=== PATIENT | female | born 1970 | race Caucasian/White ===

== ENCOUNTER 2021-04-02 21:05 | Emergency (ER) | payer OTHER, SELFPAY ==
--- NOTE | ~2021-04-02 | XR_ITS ---
EXAMINATION: XR chest 1V portable DATE: 04/02/2021 22:22 INDICATION: COVID positive. Shortness of breath and cough. TECHNIQUE: frontal view of the chest was obtained. COMPARISON: Chest radiograph dated 06/07/2018 FINDINGS: The lungs remain clear with no focal airspace opacities, pulmonary edema, pleural effusion or pneumot horax. The cardiomediastinal silhouette is normal. Visualized bones and soft tissues are unremarkable . IMPRESSION: 1. No acute cardiopulmonary disease. Reviewed, dictated and finalized at location A.
[2021-04-02 21:05] VITALS: BP 136/81; PULSE 66; RESP 10; TEMP 36.6; O2SAT 95; O2SAT 97
--- NOTE | 2021-04-02 21:15 | ECG_ITS ---
Measurements Intervals [place] Rate: 63 P: 9 W[place]: 156 QRS: 3 QRSD: 91 T: 56 QT: 449 QTc: 463 Interpretive Statements SINUS RHYTHM LEFT VENTRICULAR HYPERTROPHY WITH ST-T CHANGE BORDERLINE ECG Electronically Signed On 04-03-2021 7:05:57 CDT by Yuriy Tam D.O.
[2021-04-02 22:16] LABS: Basophils Percent Auto 0.2 % (0.2-1.2); Eosinophils Absolute Auto 0.2 K/mm3 (0-0.3); Eosinophils Percent Auto 3.1 % (0-4.4); Hematocrit 43.2 % (37.0-47.0); Immature Granulocyte Absolute 0.06 K/mm3 (0.00-0.031); Lymphocytes Absolute Auto 2.18 K/mm3 (0.9-3.2); Mean Corpuscular HGB Conc 34.7 g/dl (32-36); Mean Corpuscular Hemoglobin 34.7 pg (26-34); Mean Platelet Volume 9.6 fl (7.4-10.4); Monocytes Absolute Auto 0.4 K/mm3 (0.1-0.6); Monocytes Percent Auto 6.3 % (2.6-8.5); Neutrophils Absolute Auto 2.9 K/mm3 (1.3-6.7); Neutrophils Percent Auto 51.4 % (45.5-73.1); Platelet Count Result 235 k/mm3 (150-375); Red Blood Count 4.32 M/mm3 (4.2-5.4); Red Cell Distribution Width 11.2 % (11.5-14.5); White Blood Count 5.7 K/mm3 (4.5-10.0)
[2021-04-02 22:25] LABS: Platelet Estimate Adequate (Adequate); Stomatocytes 1+ (NORMAL)
[2021-04-02 22:26] LABS: Atypical Lymphocytes Present
[2021-04-02 22:27] LABS: Alanine Aminotransferase 39 U/L (4-35); Albumin Level 4.2 g/dL (3.5-5.1); Alkaline Phosphatase 74 U/L (38-126); Anion Gap 10 mmol/L (8-16); Aspartate Amino Transferase 31 U/L (14-36); Bilirubin,Total 0.2 mg/dL (0.2-1.3); Blood Urea Nitrogen 11 mg/dL (7-17); Calcium 8.8 mg/dL (8.4-10.2); Carbon Dioxide 23 mmol/L (22-30); Chloride 104 mmol/L (98-107); Estimated CRCL calculation 88 ml/min; Estimated Glomerular Filt Rate > 60; Glucose 97 mg/dL (65-110); Potassium 3.9 mmol/L (3.4-5.0); Sodium 137 mmol/L (137-145)
[2021-04-02 22:46] LABS: D Dimer < 0.22 ug/mL (<0.48)
--- NOTE | 2021-04-02 23:22 | ED.SOB ---
HPI - SOB/Dyspnea General Chief Complaint: Shortness of Breath/Dyspnea Stated Complaint: SOB/ covid + Time Seen by Provider: 04/02/21 21:22 History of Present Illness HPI Narrative: Patient is a 51-year-old female who presents ER with shortness of breath. Patient was diagnosed with Covid 1 week ago. She reports she has a chronic cough from smoking but felt off and was tested and was subsequently positive. 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 She has been vaccinated. She denies any fevers but has been having chills and fatigue. She has frequent and persistent cough. No alleviating factors. She has not had any breathing treatments. She has tried Tessalon Perles and [id number] cough suppressant. Related Data Allergies Allergy/AdvReac Type Severity Reaction Status Date / Time Penicillins Allergy Unknown Unknown Verified 04/02/21 21:17 tiotropium Allergy Unknown Blister Verified 04/02/21 21:17 TIOTROPIUM BROMIDE Allergy Unknown Blister Uncoded 04/02/21 21:17 Review of Systems Review of Systems: All systems reviewed & are unremarkable except as noted in HPI and below Constitutional: Constitutional: Reports chills, Reports fatigue, Denies fever(s) and Reports weakness ENT: Reports nasal congestion and Denies sore throat Cardiovascular: Cardiovascular: Denies chest pain and Denies radiating jaw, neck or arm pain Respiratory: Respiratory: Denies chest congestion, Reports cough, Reports dyspnea and Denies wheezing Gastrointestinal: Gastrointestinal: Denies abdominal pain, Denies nausea and Denies vomiting PMFSH Past Medical History Medical History (Updated 04/02/21 @ 23:27 by Everette Lopez MD) Anxiety Asthma Depression History of left heart catheterization No deployment of stent History of myocardial infarction Hypertension Surgical History Surgical History (Updated 04/02/21 @ 23:25 by Everette Lopez MD) History of hysterectomy History of tonsillectomy Family History Family History (Updated 04/18/18 @ 13:59 by DOCTOR UNKNOWN) Sibling Patient's sister is in good health Father Family history of chronic obstructive pulmonary disease Mother Family history of lung cancer Social History Social History (Updated 04/02/21 @ 23:25 by Everette Lopez MD) Smoking status: Current every day smoker Alcohol intake: current Exam Narrative: GENERAL: Well-appearing, well-nourished, and in no acute distress. HEAD: Normocephalic, atraumatic. CHEST: Clear to auscultation. No respiratory distress. Frequent coughing. HEART: Regular rate and rhythm.. Normal peripheral pulses. ABDOMEN: Soft, nontender, nondistended. EXTREMITIES: Normal range of motion. No edema. SKIN: Warm, dry, no rash. NEURO: Alert and oriented x3. PSYCH: Normal mood and affect. Course Course Emergency Course: Patient informed of results. Will give a inhaler to the patient for home, may also have component of bronchitis related to viral infection so she will be placed on steroids.. No evidence of pneumonia on chest x-ray. No hypoxia in the ER. Vital Signs Vital signs: Vital Signs Temperature 97.8 F 04/02/21 21:05 Pulse Rate 66 04/02/21 21:05 Respiratory Rate 10 L 04/02/21 21:05 Blood Pressure 136/81 04/02/21 21:05 Pulse Oximetry 95 04/02/21 21:05 Temperature 97.8 F 04/02/21 21:05 Pulse Rate 66 04/02/21 21:05 Respiratory Rate 10 L 04/02/21 21:05 Blood Pressure 136/81 04/02/21 21:05 Pulse Oximetry 97 04/02/21 21:05 MDM - SOB/Dyspnea Lab Data Result diagrams: 04/02/21 22:09 04/02/21 22:09 Labs: Lab Results 04/02/21 04/02/21 04/02/21 Range/Units 22:09 22:09 22:09 WBC 5.7 (4.5-10.0) K/mm3 RBC 4.32 (4.2-5.4) M/mm3 Hgb 15.0 (12.0-15.0) g/dL Hct 43.2 (37.0-47.0) % MCV 100.0 (80-100) fl MCH 34.7 H (26-34) pg MCHC 34.7 (32-36) g/dl RDW 11.2 L (11.5-14.5) % Plt Count 235 (150-375) k/mm3 MPV
[2021-04-02 23:28] VITALS: BP 122/78; PULSE 63; RESP 22; O2SAT 96
[2021-04-02 23:42] VITALS: BP 118/76; PULSE 73; RESP 20; O2SAT 97
== END 2021-04-02 23:41 | disposition home or self-care (01) ==
PROVIDERS: Emergency Provider Emergency Medicine; PCP Internal Medicine Gastroenterology
DX: U07.1 COVID-19 (principal); J40 Bronchitis, not specified as acute or chronic; J45.909 Unspecified asthma, uncomplicated; I25.2 Old myocardial infarction; I10 Essential (primary) hypertension; F17.200 Nicotine dependence, unspecified, uncomplicated; I51.7 Cardiomegaly
CPT/HCPCS: 36415; 71045; 80053; 85025; 85380; 93005; 99283

== ENCOUNTER 2025-08-20 14:02 | Emergency (ER) | payer OTHER, SELFPAY ==
--- NOTE | ~2025-08-20 | XR_ITS ---
EXAMINATION: XR chest 2V, 08/20/2025 15:53 FACTORY CLERK HISTORY: sob COMPARISON: No comparisons available. Technique: 2 views obtained. Findings: The lungs are clear, no effusion. No pneumothorax. Heart is normal size. Mediastinal and hilar contours are within normal limits. Bony thorax no acute abnormality. Impression: No acute cardiopulmonary abnormality. Reviewed, dictated and finalized at location P. ORY CLERK Impression: No acute cardiopulmonary abnormality.
[2025-08-20 14:06] VITALS: BP 187/102; PULSE 94; RESP 20; TEMP 36.4; O2SAT 98
--- OUTSIDE RECORDS SUMMARY | 2025-08-20 15:03 | XMS_ITS | Continuity of Care Document ---
Author Name Christianne Ng Address [address] [place] [address] Organization Unknown Address [address] [place] [address] Medications No known medications Problems No known problems
--- OUTSIDE RECORDS SUMMARY | 2025-08-20 15:03 | XMS_ITS | Clinical Summary ---
Author Organization [facility] Address [address] [place] [address] Care Team Providers Care Special Projects Manager Name Role Phone Unavailable Primary Care Provider Unavailabl e Source Comments [facility],non-owned Affiliates and Associated Physician Practices is amultiple site organization consisting of ambulatory clinics and hospital sitesin [place], [place], [place] and [place]. This disclosure is being madepursuant to the Care Everywhere program and may not contain all information available regarding this patient. Last updated 18.[facility] [employer] Allergies Active Allergy Reactions Criticality Noted Date Comments Hydrocodone Psychiatric Medium 11/29/2023 Penicillins Urticaria,Shortness of Breath High 07/16 Spiriva Unknown 10/23/2023 Medications * Be aware that medications may not be up to date on this document. Alwaysverify current medications with the patient. topiramate (Topamax) 50 MG tablet Take 1 (one) tablet by mouth at bedtime Active buPROPion SR 12hr (Wellbutrin-SR) 150 MG tablet Take 1 (one) tablet by mouth 2 times daily Active aspirin (Aspirin) 81 MG chew tablet Take 1 (one) tablet by mouth once daily 100 tablet 3 4 Active atorvastatin (Lipitor) 40 MG tablet Take 1 (one) tablet by mouth at bedtime 30 tablet 3 4 Active amLODIPine (Norvasc) 10 MG tabletIndications :Primary hypertension Take 1 (one) tablet by mouth once daily 90 tablet 4 4 Active Active Problems Problem Noted Date Diagnosed Date Facial droop 10/23/2023 Cerebrovascular accident (CVA), unspecified mech anism 10/23/2023 Right sided weakness 10/23/2023 HTN (hypertension) 10/23/2023 Nicotine dependence 10/23/2023 Migraine without aura and wi thout status migrainosus, not intractable 10/23/2023 Encounters Date Type Department Care Team Description 06/15/2025 Refill [facility] - Neurology [address] [place] [address] Zaira Martin PA-C MEDICATION REFILL from Last 3 Months Social History Tobacco Use Types Packs/Day Years Used Date Smoking Tobacco: Every Day Cigarettes Smokeless Tobacco: Never AUDIT-C Answer Date Recorded Q1: How often do you have a drink containing alcohol? 4 or more times a week 10/23/2023 Q2: How many drinks containi ng alcohol do you have on a typical day when you are drinking? 3 or 4 Q3: How often do you have si x or more drinks on one occasion? Less than monthly 10/23/2023 Overall Financial Resource Strain (CARDIA) Answe r Date Recorded How hard is it for you to pa y for the very basics like food, housing, medical care, and heating? Not hard at all 10/23/2023 PHQ-2 Answer Date Recorded Patient Health Questionnaire-2 Score 0 10/24/2023 [facility] Occupat [facility] - Occupational Stress Questionnaire Answer Date Recorded Do you feel stress - tense, restless, nervous, or anxious, or unable to sleep at night because your mind is troubled all the time - these days? Not at all 10/23/2023 Hunger Vital Sign Answer Date Recorded Within the past 12 months, y ou worried that your food would run out before you got the money to buy more. Never true 10/23/19 24 Within the past 12 months, t he food you bought just didn't last and you didn't have money to get more. Never true 10/23/2023 PRAPARE - Transportation Answer Date Re corded In the past 12 months, has l ack of transportation kept you from medical appointments or from getting medications? No 10/05 In the past 12 months, has l ack of transportation kept you from meetings, work, or from getting things needed for daily living? No 10/23/2023 Housing Stability Vital Sign Answer Renny e Recorded In the last 12 months, was t here a time when you were not able to pay the mortgage or rent on time? No 10/23/2023 In the last 12 months, how many places have you lived? 1 10/23/2023 In the last 12 months, was t here a time when you did not have a steady place to sleep or slept in a snf (including now)? 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 Gender Identity Not on file Sexual Orientation Not on file Last Filed Vital Signs Vital Sign Reading Time Taken Comments Blood Pressure 143/83 11/29/2023 10:47 AM CDT Pulse 65 11/29/2023 10:47 AM CDT Temperature 36.3 C (97.4 F) 10/24/2023 12:00 PM SANDWICH MACHINE OPERATOR Respiratory Rate 14 11/29/2023 10:47 AM CDT Oxygen Saturation 97% 10/24/2023 11:45 AM SANDWICH MACHINE OPERATOR Inhaled Oxygen Concentration - - Weight 85.7 kg (189 lb) 11/29/2023 10:47 AM CDT Height 167.6 cm (5' 6) 10/23/2023 7:00 AM SANDWICH MACHINE OPERATOR Body Mass Index 30.51 10/23/2023 7:00 AM SANDWICH MACHINE OPERATOR Plan of Treatment Health Maintenance Due Date Last Done Comments COLOGUARD (AGES 45-75) - COLON CA SCREENING 1970 COLON MONITORING 1970 COLONOSCOPY - COLON CA SCREENING 1970 CT COLONOGRAPHY - COLON CA SCREENING 1970 Colorectal Cancer Screening 1970 FIT - COLON CA SCREENING 1970 FLEX SIG - COLON CA SCREENING 1970 MAMMOGRAM 1970 HIV SCREENING 1985 HEPATITIS C SCREENING 02/03/1988 DTAP/TDAP/TD VACCINES (1 - Tdap) 1989 HEPATITIS B VACCINE (1 of 3 - 19+ 3-dose series) 1989 PNEUMOCOCCAL VACCINE 50+ (1 of 2 - PCV) 1989 PAP SMEAR 1991 ZOSTER VACCINE (1 of 2) 02/08/2020 DEPRESSION SCREENING 09/03/2024 11/29/2023 COVID-19 VACCINE ( - season) 2025 10/21/2021, 10/15/2020, 09/24/2020 INFLUENZA VACCINE (#1) 2025 06/18/2020 SCREENING FOR DIABETES 10/24/2026 , 10/23/2023, 10/23/2023, Additional history exists HIB VACCINE Aged Out No longer eligi ble based on patient's age to complete this topic HPV VACCINE Aged Out No longer eligi ble based on patient's age to complete this topic MENINGOCOCCAL (Group B) VACCINE SHARED DECISION-MAKING Aged Out No longer eligible based on patient's age to complete this topic MENINGOCOCCAL GROUPS A/C/Y/W VACCINE Aged Out No longer eligible based on patient's age to complete this topic Procedures Procedure Name Priority Date/Time Associated Diagnosis Comments COMPREHENSIVE METABOLIC PANEL Routine 10/24/2023 12:28 AM SANDWICH MACHINE OPERATOR from Last 3 Months or Most Recently Relevant to Health Maintenance Results * (ABNORMAL) COMPREHENSIVE METABOLIC PANEL (10/24/2023 12:28 AM SANDWICH MACHINE OPERATOR) BUN 17 7 - 26 mg/dL 10/24/2023 1:09 AM [facility] Creatinine 0.91 0.56 - 0.96 mg/dL 10/24/2023 1:09 AM [facility] Sodium 138 136 - 145 mmol/L 10/24/2023 1:09 AM [facility] Potassium 3.4(L) 3.5 - 4.5 mmol/L 10/24/2023 1:09 AM [facility] Chloride 108(H) 98 - 107 mmol/L 10/24/2023 1:09 AM [facility] CO2 22 22 - 29 mmol/L 10/24/2023 1:09 AM [facility] Glucose 96 70 - 115 mg/dL 10/24/2023 1:09 AM [facility] Calcium 9.1 8.4 - 10.2 mg/dL 10/24/2023 1:09 AM [facility] Protein Total 6.4 6.0 - 8.3 g/dL 10/24/2023 1:09 AM [facility] Albumin 3.6 3.4 - 5.0 g/dL 10/24/2023 1:09 AM [facility] Bilirubin Total 0.3 0.2 - 1.2 mg/dL 10/24/2023 1:09 AM [facility] Alkaline Phosphatase 86 40 - 150 U/L 10/24/2023 1:09 AM [facility] ALT 19 5 - 55 U/L 10/24/2023 1:09 AM [facility] AST 16 5 - 34 U/L 10/24/2023 1:09 AM [facility] Anion Gap 8 6 - 16 10/24/2023 1:09 AM [facility] BUN/Creatinine Ratio 19 7 - 23 10/24/2023 1:09 AM [facility] Osmolality Calculated 287 275 - 295 mOsm/kg 10/24/2023 1:09 AM [facility] Albumin/Globulin Ratio 1.3 1.1 - 2.3 10/24/2023 1:09 AM [facility] eGFR by CKD-EPI 75(L) >=90 mL/min/1.7 3 m2 10/24/2023 1:09 AM [facility] Blood BLOOD SPECIMEN / Unknown Venipuncture / Unknown 10/24/2023 12:28 AM SANDWICH MACHINE OPERATOR 10/24/2023 12:40 AM [facility] Sung Mckeon MD LAB - CHEMISTRY ORDERABLES nal Result Performing Organization Address [facility]/State/ZIP Co de Phone Number [facility] [address] [place] [address], [facility] [phone] from Last 3 Months or Most Recently Relevant to Health Maintenance Insurance INDIVIDUAL EXCHANGE BENEFIT PLAN Advance Directives * Full Code (Latest Code Status on File) Date Activated Date Inactivated Comments 10/23/2023 1:19 AM 10/24/2023 5:34 PM
--- OUTSIDE RECORDS SUMMARY | 2025-08-20 15:03 | XMS_ITS | Continuity of Care Document ---
Author Name Christianne Ng Address [address] [place] [address] Organization Unknown Address [address] [place] [address] Problems No known problems
--- OUTSIDE RECORDS SUMMARY | 2025-08-20 15:03 | XMS_ITS | Clinical Summary ---
Author Organization [facility] [address] Address [address] [place] [address] Care Team Providers Care Conference Planner Name Role Phone Sumanth Smith MD Primary Care Provider Allergies Active Allergy Reactions Criticality Noted Date Comments Penicillins Hives,Shortness of breath High 7 Tiotropium [place] Blisters High 07/16/2017 Medications furosemide (LASIX) 20 mg tablet Take 20 mg by mouth daily. Active aspirin 81 mg tablet Take 81 mg by mouth daily. Active atorvastatin (LIPITOR) 40 mg tablet Take 40 mg by mouth daily. Active nitroglycerin (NITROSTAT) 0.[address] 0.4 mg under the tongue every 5 (five) minutes as needed for chest pain. Active Active Problems No known active problems Surgical History Surgery Date Site/Laterality Comments SECTION TONSILECTOMY, ADENOIDECTOMY, BILATERAL MYRINGOTOMY AND TUBES HYSTERECTOMY Medical History Medical History Date Comments Hypertension Aortic valve disorder Non-ST elevation (NSTEMI) myocardial infarction (HCC) Anxiety Depression Family History Medical History Relation Name Comments No Known Problems Sister Relation Name Status Comments Father Alive Mother (Age 64) Sister Alive Social History Tobacco Use Types Packs/Day Years Used Date Smoking Tobacco: Every Day Cigarettes Smokeless Tobacco: Never Alcohol Use Standard Drinks/Week Comments Yes 8 (1 standard drink = 0.6 oz pur e alcohol) Personal Safety Answer Date Recorded Getting School Help Needed Not on file 11/16 Comments Unknown Sex and Gender Information Value Date Recorded Sex Assigned at Not on file Legal Sex Female 12:22 AM UNIT MANAGER RN Gender Identity Not on file Sexual Orientation Not on file Last Filed Vital Signs Vital Sign Reading Time Taken Comments Blood Pressure 144/88 07/16/2017 3:47 PM UNIT MANAGER RN Pulse 78 07/16/2017 3:47 PM UNIT MANAGER RN Temperature 36.8 C (98.2 F) 07/26/2014 11:32 AM UNIT MANAGER RN Respiratory Rate - - Oxygen Saturation 97% 07/16/2017 3:47 PM UNIT MANAGER RN Inhaled Oxygen Concentration - - Weight 88.9 kg (196 lb) 07/16/2017 3:47 PM UNIT MANAGER RN Height 167.6 cm (5' 6) 07/16/2017 3:47 PM UNIT MANAGER RN Body Mass Index 31.64 07/16/2017 3:47 PM UNIT MANAGER RN Plan of Treatment Not on file Insurance COUNT INCLUDES THE [facility] HEALTHCARE INCLUDES THE [facility] HMO/PPO Address: [facility] [address] [place] [address] Care Teams Conference Planner Relationship Specialty Start Date End Date Sumanth Smith MD PCP - General Internal Medicine 07/04/17
--- NOTE | 2025-08-20 15:49 | ED_ITS ---
HPI - URI/Sore Throat General Chief Complaint: Upper Respiratory Infection <Steph Murphy PA-C - Last Filed: 08/21/25 17:03> Stated Complaint: cough <Steph Murphy PA-C - Last Filed: 08/21/25 17:03> Time Seen by Provider: 08/20/25 15:49 <Steph Murphy PA-C - Last Filed: 08/21/25 17:03> Focused HPI: This is a 55 year old female that presents to the ER for cough. Ongoing over the last 3 days. Reports associated loss of voice. Reports she has had some vomiting. Her blood pressure is elevated. She has not taken her blood pressure medication because she is out. She takes Amlodipine 10mg. Reports fevers, shortness of breath. GENERAL: Well-appearing, well-nourished, and in no acute distress. HEAD: Normocephalic, atraumatic. CHEST: Clear to auscultation. ?No respiratory distress. HEART: Regular rate and rhythm.? NEURO: ?Alert and oriented x3. Patient screened in triage and initial orders placed.? ?Additional care and disposition to be based upon?diagnostic testing and treatment. <Steph Murphy PA-C - Last Filed: 08/21/25 17:03> History of Present Illness HPI Narrative: Agree with HPI. Does note rectal pain that has been becoming more frequent between her cycles. Patient is a . <Moises Martin DO - Last Filed: 08/20/25 18:49> Related Data Allergies/Adverse Reactions: Allergies Allergy/AdvReac Type Severity Reaction Status Date / Time Penicillins Allergy Unknown Unknown Verified 01/27/22 13:13 tiotropium Allergy Unknown Blister Verified 01/27/22 13:13 TIOTROPIUM BROMIDE Allergy Unknown Blister Uncoded 01/27/22 13:13 <Steph Murphy PA-C - Last Filed: 08/21/25 17:03> Review of Systems 2 Review of Systems: All systems reviewed & are unremarkable except as noted in HPI and below <Steph Murphy PA-C - Last Filed: 08/21/25 17:03> PMFSH Past Medical History Medical History: Medical History (Updated 12/19/25 @ 00:00 by Jim Frank) Anxiety Depression Asthma Hypertension History of left heart catheterization No deployment of stent History of myocardial infarction <Steph Murphy PA-C - Last Filed: 08/21/25 17:03> Surgical History Surgical History: Surgical History (System 01/27/22 @ 13:13 by Madiha Alexander) History of hysterectomy History of tonsillectomy <SAMINA Johnson Last Filed: 08/21/25 17:03> Family History Family History: Family History (System 01/27/22 @ 13:13 by Madiha Alexander) Sibling Patient's sister is in good health Father Family history of chronic obstructive pulmonary disease Mother Family history of lung cancer <SAMINA Johnson Last Filed: 08/21/25 17:03> Social History Social History: Social History (System 01/27/22 @ 13:13 by Madiha Alexander) Smoking status: Current every day smoker Alcohol intake: current <SAMINA Johnson Last Filed: 08/21/25 17:03> Course Vital Signs Vital signs: Vital Signs Temperature 97.6 F 08/20/25 14:06 Pulse Rate 94 08/20/25 14:06 Respiratory Rate 20 08/20/25 14:06 Blood Pressure 187/102 H 08/20/25 14:06 Pulse Oximetry 98 08/20/25 14:06 Temperature 97.6 F 08/20/25 14:06 Pulse Rate 88 08/20/25 18:20 Respiratory Rate 16 08/20/25 18:20 Blood Pressure 185/108 H 08/20/25 18:20 Pulse Oximetry 98 08/20/25 18:20 Oxygen Delivery Room Air 08/20/25 17:00 <SAMINA Johnson Last Filed: 08/21/25 17:03> Vital Signs Temperature 97.6 F 08/20/25 14:06 Pulse Rate 94 08/20/25 14:06 Respiratory Rate 20 08/20/25 14:06 Blood Pressure 187/102 H 08/20/25 14:06 Pulse Oximetry 98 08/20/25 14:06 Temperature 97.6 F 08/20/25 14:06 Pulse Rate 88 08/20/25 18:20 Respiratory Rate 16 08/20/25 18:20 Blood Pressure 185/108 H 08/20/25 18:20 Pulse Oximetry 98 08/20/25 18:20 Oxygen Delivery Room Air 08/20/25 17:00 <Moises Martin DO - Last Filed: 08/20/25 18:49> [facility] Narrative Medical decision making narrative: 55-year-old female Presenting for cough. On initial evaluation patient was in no acute distress afebrile, hemodynamic stable. Differentials include but are not limited to: Viral syndrome, strep pharyngitis, viral pharyngitis, sinusitis, laryngitis, SECURITY SITE SUPERVISOR, RPA Notable exam findings: Heart and lungs clear, breathy voice I personally reviewed the patient's lab result. Notable lab findings: Leukocytosis at 12.2. CMP without significant abnormalities. COVID/flu/RSV negative. I personally reviewed the patient's images and interpret as follows: Chest x- ray: Normal cardiac silhouette, no consolidations, no pleural effusions, no pulmonary vascular congestion Patient was given DuoNeb but she did have significant cough causing her some mild shortness of breath. She remained saturating in the high 90s on room air she did have some mild improvement of her symptoms after that. She will be given a prescription for a Medrol Dosepak, albuterol inhaler, and Tessalon Perles. She was advised follow-up with her PCP in the next week for re- evaluation. Patient was agreeable to this plan. Given strict return precautions. Of note, patient does have a history of hypertension and has not been taking her amlodipine as prescribed. She had no chest pain or changes in vision. <Moises Martin DO - Last Filed: 08/20/25 18:49> Differential Diagnosis Differential Diagnosis: Viral syndrome, strep pharyngitis, viral pharyngitis, sinusitis, laryngitis, SECURITY SITE SUPERVISOR, RPA <Moises Martin DO - Last Filed: 08/20/25 18:49> Lab Data Result diagrams: 08/20/25 16:11 08/20/25 16:11 <Steph Murphy PA-C - Last Filed: 08/21/25 17:03> Labs: Lab Results 08/20/25 Range/Units 16:11 WBC 12.2 H (4.5-10.0) K/mm3 RBC 4.37 (4.2-5.4) M/mm3 Hgb 15.6 H (12.0-15.0) g/dL Hct 44.4 (37.0-47.0) % MCV 101.6 H (80-100) fl MCH 35.7 H (26-34) pg MCHC 35.1 (32-36) g/dl RDW 11.9 (11.5-14.5) % Plt Count 321 (150-375) k/mm3 MPV 9.6 (7.4-10.4) fl Immature Gran % (Auto) 0.5 (0-0.5) % Neut % (Auto) 71.6 (45.5-73.1) % Lymph % (Auto) 19.4 (18.3-44.2) % Holt % (Auto) 7.4 (2.6-8.5) % Eos % (Auto) 0.7 (0-4.4) % Baso % (Auto) 0.4 (0.2-1.2) % Lymph # (Auto) 2.37 (0.9-3.2) K/mm3 Holt # (Auto) 0.9 H (0.1-0.6) K/mm3 Eos # (Auto) 0.1 (0-0.3) K/mm3 Baso # (Auto) 0.1 (0.0-0.1) K/mm3 Abs Immat Gran (auto) 0.06 H (0.00-0.031) K/mm3 Absolute Neuts (auto) 8.7 H (1.3-6.7) K/mm3 Absolute Nucleated RBC 0.000 (0.0-0.012) K/mm3 Nucleated RBC % 0.0 (0.0-0.2) % PT 12.9 (11.1-14.7) Seconds INR 1.0 APTT 27.2 (22.3-36.8) Seconds Sodium 138 (137-145) mmol/L Potassium 4.0 (3.4-5.0) mmol/L Chloride 104 (98-107) mmol/L Carbon Dioxide 25 (22-30) mmol/L Anion Gap 9 (4-12) mmol/L BUN 12 (7-17) mg/dL Creatinine 0.85 (0.7-1.0) mg/dL Estim Creat Clear Calc 75 ml/min Estimated GFR > 60 (59 - ) Glucose 103 (65-110) mg/dL Calcium 9.5 (8.4-10.2) mg/dL Total Bilirubin 0.6 (0.2-1.3) mg/dL AST 41 H (14-36) U/L ALT 49 H (6-35) U/L Alkaline Phosphatase 124 (38-126) U/L Total Protein 8.1 (6.3-8.2) g/dL Albumin 4.6 (3.5-5.1) g/dL Influenza A (RT-PCR) Negative (Negative) Influenza B (RT-PCR) Negative (Negative) RSV (RT-PCR) Negative (Negative) SARS-CoV-2 RNA (RT-PCR) Negative (Negative) <Steph Murphy PA-C - Last Filed: 08/21/25 17:03> Lab Results 08/20/25 Range/Units 16:11 WBC 12.2 H (4.5-10.0) K/mm3 RBC 4.37 (4.2-5.4) M/mm3 Hgb 15.6 H (12.0-15.0) g/dL Hct 44.4 (37.0-47.0) % MCV 101.6 H (80-100) fl MCH 35.7 H (26-34) pg MCHC 35.1 (32-36) g/dl RDW 11.9 (11.5-14.5) % Plt Count 321 (150-375) k/mm3 MPV 9.6 (7.4-10.4) fl Immature Gran % (Auto) 0.5 (0-0.5) % Neut % (Auto) 71.6 (45.5-73.1) % Lymph % (Auto) 19.4 (18.3-44.2) % Holt % (Auto) 7.4 (2.6-8.5) % Eos % (Auto) 0.7 (0-4.4) % Baso % (Auto) 0.4 (0.2-1.2) % Lymph # (Auto) 2.37 (0.9-3.2) K/mm3 Holt # (Auto) 0.9 H (0.1-0.6) K/mm3 Eos # (Auto) 0.1 (0-0.3) K/mm3 Baso # (Auto) 0.1 (0.0-0.1) K/mm3 Abs Immat Gran (auto) 0.06 H (0.00-0.031) K/mm3 Absolute Neuts (auto) 8.7 H (1.3-6.7) K/mm3 Absolute Nucleated RBC 0.000 (0.0-0.012) K/mm3 Nucleated RBC % 0.0 (0.0-0.2) % PT 12.9 (11.1-14.7) Seconds INR 1.0 APTT 27.2 (22.3-36.8) Seconds Sodium 138 (137-145) mmol/L Potassium 4.0 (3.4-5.0) mmol/L Chloride 104 (98-107) mmol/L Carbon Dioxide 25 (22-30) mmol/L Anion Gap 9 (4-12) mmol/L BUN 12 (7-17) mg/dL Creatinine 0.85 (0.7-1.0) mg/dL Estim Creat Clear Calc 75 ml/min Estimated GFR > 60 (59 - ) Glucose 103 (65-110) mg/dL Calcium 9.5 (8.4-10.2) mg/dL Total Bilirubin 0.6 (0.2-1.3) mg/dL AST 41 H (14-36) U/L ALT 49 H (6-35) U/L Alkaline Phosphatase 124 (38-126) U/L Total Protein 8.1 (6.3-8.2) g/dL Albumin 4.6 (3.5-5.1) g/dL Influenza A (RT-PCR) Negative (Negative) Influenza B (RT-PCR) Negative (Negative) RSV (RT-PCR) Negative (Negative) SARS-CoV-2 RNA (RT-PCR) Negative (Negative) <Moises Martin DO - Last Filed: 08/20/25 18:49> Imaging Data Radiologist's impression: ITS Impressions Chest X-Ray 08/20/25 15:59 Impression: No acute cardiopulmonary abnormality. <Steph Murphy PA-C - Last Filed: 08/21/25 17:03> ITS Impressions Chest X-Ray 08/20/25 15:59 Impression: No acute cardiopulmonary abnormality. <Moises Martin DO - Last Filed: 08/20/25 18:49> Critical Care Time Critical Care Time Critical Care Time: No <Steph Murphy PA-C - Last Filed: 08/21/25 17:03> Discharge Plan Discharge Clinical Impression: Bronchitis <Steph Murphy PA-C - Last Filed: 08/21/25 17:03> Patient Disposition: Home <SAMINA Johnson Last Filed: 08/21/25 17:03> Condition: Stable <SAMINA Johnson Last Filed: 08/21/25 17:03> Instructions: Antibiotic Form, Acute Bronchitis (ED) <SAMINA Johnson Last Filed: 08/21/25 17:03> Additional Instructions: You likely have an acute bronchitis. Take albuterol, Tessalon Perles, Medrol Dosepak as prescribed. Follow-up with her PCP in the next week for re- evaluation. Return to the ED for any new or worsening symptoms. <Steph Murphy PA-C - Last Filed: 08/21/25 17:03> Patient Language: Latvian <SAMINA Johnson Last Filed: 08/21/25 17:03> Prescriptions: New albuterol sulfate 90 mcg/actuation aerosol powdr breath activated 2 inh inhalation Q6H PRN (Reason: wheezing) Qty: 1 0RF methylprednisolone [Medrol (Ken)] 4 mg tablets,dose pack See Rx Instructions .ROUTE .COMPLEX Qty: 21 0RF Rx Instructions: for 6 days benzonatate 200 mg capsule 200 mg PO TID PRN (Reason: cough) Qty: 21 0RF No Action prednisone 50 mg tablet 50 mg PO DAILY Qty: 7 0RF albuterol sulfate 90 mcg/actuation HFA aerosol inhaler 4 puff INHALATION QID PRN (Reason: shortness of breath or wheezing) Qty: 8 0RF <SAMINA Johnson Last Filed: 08/21/25 17:03> Follow-up/Referrals: PHYSICIAN NOT ON STAFF,NONSTAFF [Primary Care Provider] <Steph Murphy PA-C - Last Filed: 08/21/25 17:03> Stand Alone Forms: Work/School Release IP <Steph Murphy PA-C - Last Filed: 08/21/25 17:03>
[2025-08-20 16:11] VITALS: BP 145/106; PULSE 87; RESP 16; O2SAT 97
[2025-08-20 16:21] LABS: Hematocrit 44.4 % (37.0-47.0); Hemoglobin 15.6 g/dL (12.0-15.0); Immature Granulocyte Percent A 0.5 % (0-0.5); Lymphocytes Absolute Auto 2.37 K/mm3 (0.9-3.2); Mean Corpuscular HGB Conc 35.1 g/dl (32-36); Mean Corpuscular Hemoglobin 35.7 pg (26-34); Mean Corpuscular Volume 101.6 fl (80-100); Nucleated Red Blood Cells Absolute Auto 0.000 K/mm3 (0.0-0.012); Nucleated Red Blood Cells Perc 0.0 % (0.0-0.2); Platelet Count Result 321 k/mm3 (150-375); Red Blood Count 4.37 M/mm3 (4.2-5.4); White Blood Count 12.2 K/mm3 (4.5-10.0)
[2025-08-20 16:30] LABS: Alanine Aminotransferase 49 U/L (6-35); Albumin Level 4.6 g/dL (3.5-5.1); Alkaline Phosphatase 124 U/L (38-126); Anion Gap 9 mmol/L (4-12); Aspartate Amino Transferase 41 U/L (14-36); Bilirubin,Total 0.6 mg/dL (0.2-1.3); Blood Urea Nitrogen 12 mg/dL (7-17); Calcium 9.5 mg/dL (8.4-10.2); Carbon Dioxide 25 mmol/L (22-30); Chloride 104 mmol/L (98-107); Estimated CRCL calculation 75 ml/min; Estimated Glomerular Filt Rate > 60; Glucose 103 mg/dL (65-110); Potassium 4.0 mmol/L (3.4-5.0); Sodium 138 mmol/L (137-145); Total Protein 8.1 g/dL (6.3-8.2)
[2025-08-20 16:31] LABS: INR 1.0; Prothrombin Time 12.9 Seconds (11.1-14.7)
[2025-08-20 16:32] LABS: Partial Thromboplastin Time 27.2 Seconds (22.3-36.8)
--- OUTSIDE RECORDS SUMMARY | 2025-08-20 16:47 | XMS_ITS | Clinical Summary ---
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 Gender Identity Not on file Sexual Orientation Not on file Last Filed Vital Signs Vital Sign Reading Time Taken Comments Blood Pressure 144/88 07/16/2017 3:47 PM PIPE ORGAN BUILDER Pulse 78 07/16/2017 3:47 PM PIPE ORGAN BUILDER Temperature 36.8 C (98.2 F) 07/26/2014 11:32 AM PIPE ORGAN BUILDER Respiratory Rate - - Oxygen Saturation 97% 07/16/2017 3:47 PM PIPE ORGAN BUILDER Inhaled Oxygen Concentration - - Weight 88.9 kg (196 lb) 07/16/2017 3:47 PM PIPE ORGAN BUILDER Height 167.6 cm (5' 6) 07/16/2017 3:47 PM PIPE ORGAN BUILDER Body Mass Index 31.64 07/16/2017 3:47 PM PIPE ORGAN BUILDER Plan of Treatment Not on file Insurance [facility] Care Teams Biofuels Production Associate Relationship Specialty Start Date End Date Sumanth Smith MD PCP - General Internal Medicine 07/04/17
--- OUTSIDE RECORDS SUMMARY | 2025-08-20 16:47 | XMS_ITS | Clinical Summary ---
Author Organization [facility] Address [address] [place] [address] Care Team Providers Care General Internal Medicine Doctor Name Role Phone Unavailable Primary Care Provider Unavailabl e Source Comments [facility],non-owned Affiliates and Associated Physician Practices is amultiple site organization consisting of ambulatory clinics and hospital sitesin [place], [place], [place] and [place]. This disclosure is being madepursuant to the Care Everywhere program and may not contain all information available regarding this patient. Last updated 18.[facility] Allergies Active Allergy Reactions Criticality Noted Date [...] Refill [facility] - [facility] [address] [place] [address] Zaira Martin PA-C MEDICATION REFILL from Last [...] Recorded Patient Health Questionnaire-2 Score 0 10/24/2023 [facility] Occupat ional Health - Occupational Stress [...] place to sleep or slept in a fdc (including now)? No 10/23/2023 Comments No Sex and Gender Information Value Date Recorded Sex Assigned at Not on file Legal Sex Female 6:00 AM COMMERCIAL FLOOR COVERING INSTALLER Gender Identity Not on file Sexual Orientation Not on file Last Filed Vital Signs Vital Sign Reading Time Taken Comments Blood Pressure 143/83 11/29/2023 10:47 AM CDT Pulse 65 11/29/2023 10:47 AM CDT Temperature 36.3 C (97.4 F) 10/24/2023 12:00 PM COMMERCIAL FLOOR COVERING INSTALLER Respiratory Rate 14 11/29/2023 10:47 AM CDT Oxygen Saturation 97% 10/24/2023 11:45 AM COMMERCIAL FLOOR COVERING INSTALLER Inhaled Oxygen Concentration - - Weight 85.7 kg (189 lb) 11/29/2023 10:47 AM CDT Height 167.6 cm (5' 6) 10/23/2023 7:00 AM COMMERCIAL FLOOR COVERING INSTALLER Body Mass Index 30.51 10/23/2023 7:00 AM COMMERCIAL FLOOR COVERING INSTALLER Plan of Treatment Health Maintenance Due Date [...] COMPREHENSIVE METABOLIC PANEL Routine 10/24/2023 12:28 AM COMMERCIAL FLOOR COVERING INSTALLER from Last 3 Months or Most Recently Relevant to Health Maintenance Results * (ABNORMAL) COMPREHENSIVE METABOLIC PANEL (10/24/2023 12:28 AM COMMERCIAL FLOOR COVERING INSTALLER) BUN 17 7 - 26 mg/dL 10/24/2023 1:09 AM [facility] Creatinine 0.91 0.56 - 0.96 mg/dL 10/24/2023 1:09 AM [facility] Sodium 138 136 - 145 mmol/L 10/24/2023 1:09 AM [facility] Potassium 3.4(L) 3.5 - 4.5 mmol/L 10/24/2023 1:09 AM [facility] Chloride 108(H) 98 - 107 mmol/L 10/24/2023 1:09 AM [facility] CO2 22 22 - 29 mmol/L 10/24/2023 1:09 AM [facility] Glucose 96 70 - 115 mg/dL 10/24/2023 1:09 AM [facility] Calcium 9.1 8.4 - 10.2 mg/dL 10/24/2023 1:09 AM [facility] Protein Total 6.4 6.0 - 8.3 g/dL 10/24/2023 1:09 AM [facility] Albumin 3.6 3.4 - 5.0 g/dL 10/24/2023 1:09 AM [facility] Bilirubin Total 0.3 0.2 - 1.2 mg/dL 10/24/2023 1:09 AM [facility] Alkaline Phosphatase 86 40 - 150 U/L 10/24/2023 1:09 AM [facility] ALT 19 5 - 55 U/L 10/24/2023 1:09 AM [facility] AST 16 5 - 34 U/L 10/24/2023 1:09 AM [facility] Anion Gap 8 6 - 16 10/24/2023 1:09 AM [facility] BUN/Creatinine Ratio 19 7 - 23 10/24/2023 1:09 AM [facility] Osmolality Calculated 287 275 - 295 mOsm/kg 10/24/2023 1:09 AM [facility] Albumin/Globulin Ratio 1.3 1.1 - 2.3 10/24/2023 1:09 AM [facility] eGFR by CKD-EPI 75(L) >=90 mL/min/1.7 3 m2 10/24/2023 1:09 AM [facility] Blood BLOOD SPECIMEN / Unknown Venipuncture / Unknown 10/24/2023 12:28 AM COMMERCIAL FLOOR COVERING INSTALLER 10/24/2023 12:[address] [facility] Sung Mckeon MD LAB - CHEMISTRY ORDERABLES nal Result Performing Organization Address [facility]/State/ZIP Co de Phone Number [facility] [address] [place] [address], [facility] [phone] from Last 3 Months or Most Recently Relevant to Health Maintenance Insurance [employer]DIVIDUAL [employer]CHANGE B[employer]EFIT PLAN Advance Directives * Full Code (Latest Code Status on File) Date Activated Date Inactivated Comments 10/23/2023 1:19 AM 10/24/2023 5:34 PM
[2025-08-20 16:57] LABS: Influenza A QL RT-PCR Negative (Negative); Influenza B QL RT-PCR Negative (Negative); RSV RNA, RT-PCR Negative (Negative); SARS-CoV-2 RNA PCR Negative (Negative)
[2025-08-20 17:00] VITALS: O2SAT 97
[2025-08-20 17:43] VITALS: RESP 21
[2025-08-20] MEDS: IPRATROPIUM 0.5 MG/ALBUTEROL SULFATE 2.5 MG (BASE) AMPUL.NEB 3 ML INHALATION (17:45)
[2025-08-20 17:47] VITALS: RESP 23
[2025-08-20 18:20] VITALS: BP 185/108; PULSE 88; RESP 16; O2SAT 98
== END 2025-08-20 18:20 | disposition home or self-care (01) ==
PROVIDERS: Physician Assistant; Emergency Provider Student in an Organized Health Care Education/Training Program
DX: J40 Bronchitis, not specified as acute or chronic (principal); Z20.822 Contact with and (suspected) exposure to COVID-19; I10 Essential (primary) hypertension; I25.2 Old myocardial infarction; F17.210 Nicotine dependence, cigarettes, uncomplicated
CPT/HCPCS: 36415; 71046; 80053; 85025; 85610; 85730; 87637; 94640; 99283; J7512